=== PATIENT | male | born 1945 ===

== ENCOUNTER 2017-06-13 08:24 | Emergency (ER) | payer OTHER ==
[2017-06-13 08:55] VITALS: BP 118/57
--- NOTE | 2017-06-13 09:23 | UC ---
Respiratory Complaint HPI - HPI Summary HPI Summary: 72 year old male with cough. ONSET TWO DAYS AGO WITH CONGESTION, COUGHING , SORE THROAT, SNEEZING. NO FEVER HE IS AWARE OF. DENIES HEADACH OR BODY ACHES. NO N/V/D. 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 Onset/Duration: Gradual Onset Timing: Constant Severity Initially: Mild Severity Currently: Moderate Pain Intensity: 0 Character: Cough: Productive Aggravating Factors: Nothing Alleviating Factors: Nothing Associated Signs And Symptoms: Positive: URI, Nasal Congestion, Sinus Discomfort - Allergies/Home Medications Allergies/Adverse Reactions: Allergies Allergy/AdvReac Type Severity Reaction Status Date / Time No Known Allergies Allergy Verified 06/13/17 08:45 Home Medications: Home Medications Aspirin TAB* [Aspirin 325 MG TAB*] 325 mg PO DAILY 06/13/17 [History Confirmed 06/13/17] Atorvastatin* [Lipitor*] 40 mg PO DAILY 06/13/17 [History Confirmed 06/13/17] Clopidogrel TAB* [Plavix TAB*] 75 mg PO DAILY 06/13/17 [History Confirmed ] Lisinopril TAB* [Prinivil TAB*] 10 mg PO DAILY 06/13/17 [History Confirmed 06/13] Metoprolol Tartrate TAB* [Lopressor TAB*] 25 mg PO DAILY 06/13/17 [History Confirmed 06/13/17] glipiZIDE TAB* [Glucotrol TAB*] 10 mg PO DAILY 06/13/17 [History Confirmed 06/13] metFORMIN* [Glucophage 500 MG TAB *] 1,000 mg PO BID 06/13/17 [History Confirmed 06/13/17] PMH/Surg Hx/FS Hx/Imm Hx Previously Healthy: Yes Endocrine History: Diabetes, Dyslipidemia Cardiovascular History: Cardiac Disease, Hypertension - Surgical History Surgical History: Yes Surgery Procedure, Year, and Place: EXCISION OF MELANOMA- SCALP. LEFT CAROTID STENT - Family History Known Family History: Positive: None - Social History Lives: With Family Alcohol Use: None Substance Use Type: None Smoking Status (MU): Former Smoker Type: Cigarettes When Did the Patient Quit Smoking/Using Tobacco: 1981 Review of Systems Constitutional: Fatigue ENT: Sore Throat, Sinus Congestion, Sinus Pain/Tenderness Respiratory: Cough Is Patient Immunocompromised?: No All Other Systems Reviewed And Are Negative: Yes Physical Exam Triage Information Reviewed: Yes Appearance: Well-Appearing, No Pain Distress, Well-Nourished Vital Signs: Initial Vital Signs Temp 98.1 F 06/13/17 08:46 Pulse 87 06/13/17 08:46 Resp 20 06/13/17 08:46 BP 118/57 06/13/17 08:46 Pulse Ox 100 06/13/17 08:46 Vital Signs Reviewed: Yes Eye Exam: Normal ENT Exam: Normal ENT: Positive: Nasal drainage, Sinus tenderness Dental Exam: Normal Neck exam: Normal Neck: Positive: 1 Respiratory Exam: Normal Cardiovascular Exam: Normal Musculoskeletal Exam: Normal Neurological Exam: Normal Psychological Exam: Normal Skin Exam: Normal UC Diagnostic Evaluation - Laboratory O2 Sat by Pulse Oximetry: 100 Respiratory Course/Dx - Course Course Of Treatment: viral at this time. advise antihistamine. advise to reduce / wean off afrin use which he states he has had on board since 1981 and failed all other meds - Differential Dx/Diagnosis Differential Diagnosis/HQI/PQRI: Bronchitis, Lower Resp Infection, Sinusitis Provider Diagnoses: Viral Sinusitis Discharge - Sign-Out/Discharge Documenting (check all that apply): Discharge - Discharge Plan Condition: Good Disposition: HOME Prescriptions: Amoxicillin/Clavulanate TAB* [Augmentin TAB 875*] 875 mg PO BID 10 Days #20 tab Patient Education Materials: Sinusitis (ED) Referrals: Albaro Antunez, [Primary Care Provider] - 4 Days Additional Instructions: At this time it appears you have a viral infection but it your symptoms persist or worsen over the next 2-3 days then at that time you may start the antibiotics - Billing Disposition and Condition Condition: GOOD Disposition: HOME
== END 2017-06-13 09:49 | disposition home or self-care (01) ==
LOC: UCCORT 08:24
DX: J32.9 Chronic sinusitis, unspecified (principal); Z87.891 Personal history of nicotine dependence
CPT/HCPCS: 99202; G0463